=== PATIENT | male | born 2000 | race Caucasian/White ===

== ENCOUNTER 2022-07-06 21:12 | Emergency (ER) | payer OTHER ==
[~2022-07-06] VITALS: Ht 175.3 cm; Wt 79.4 kg
--- NOTE | 2022-07-06 21:23 | NUR ---
3 INCH LAC ON RAC. PT WAS PULLING ARM BACK AND GOT CAUGHT IN GLASS S/P ARGUMENT.
[2022-07-06] MEDS ORDERED: ALPRAZOLAM 0.5 MG TABLET PO ONE (21:30)
[2022-07-06] MEDS ORDERED: ACETAMINOPHEN ES 500 MG TABLET PO ONE (21:30)
[2022-07-06] MEDS ORDERED: LIDOCAINE HCL/PF 1% 30 ML VIAL TP ONE (21:30)
[2022-07-06] MEDS ORDERED: IBUPROFEN 600 MG TABLET PO ONE (21:30)
[2022-07-06] MEDS ORDERED: TDAP [DIPH/PERTUSSIS/TET] 0.5 ML VIAL IM ONE ×2 (21:30→21:33)
[2022-07-06] MEDS ORDERED: ALPRAZOLAM 0.5 MG TABLET ONE (21:33)
[2022-07-06] MEDS ORDERED: ACETAMINOPHEN ES 500 MG TABLET ONE (21:33)
[2022-07-06] MEDS ORDERED: IBUPROFEN 600 MG TABLET ONE (21:33)
[2022-07-06] MEDS ORDERED: LIDOCAINE 1%-EPI 1:100,000 20 ML VIAL ONE (21:34)
--- NOTE | 2022-07-06 21:56 | NUR ---
AT BEDSIDE FOR SUTURING OF WOUND
[2022-07-06] MEDS ORDERED: OLANZAPINE 10 MG VIAL IM ONE ×2 (22:17→22:30)
--- NOTE | 2022-07-06 22:40 | NUR ---
PT ALMOST ELOPE. HE WENT OUTSIDE. ER NURSES FOUND HIM AND BROUGHT HIM BACK TO ER. PLACED ON BED 14. PROVIDED SITTER FOR PT. EXPLAINED THAT HE WILL BE CONTINUOUSLY BEING MONITORED.
--- NOTE | 2022-07-06 22:47 | NUR ---
HARISH UMANZOR ([facility]) [phone]
[2022-07-06 22:56] LABS: BASOPHILS # (AUTO) 0.1 K/uL (0.0-0.2); BASOPHILS % (AUTO) 1.3 % (0.0-2.0); EOSINOPHILS % (AUTO) 1.1 % (0.0-6.0); HEMATOCRIT 45 % (39-51); HEMOGLOBIN 14.9 g/dL (13.5-17.5); LYMPHOCYTES # (AUTO) 1.6 K/uL (0.8-4.8); LYMPHOCYTES % (AUTO) 15.9 % (20.0-44.0); MEAN CORPUSCULAR HGB CONC 33 g/dl (31.0-36.0); MEAN CORPUSCULAR VOLUME 85 fL (80-96); MONOCYTES # (AUTO) 0.2 K/uL (0.1-1.30); MONOCYTES % (AUTO) 1.8 % (2.0-12.0); NEUTROPHILS # (AUTO) 8.1 K/uL (1.8-8.9); NEUTROPHILS % (AUTO) 79.9 % (43.0-81.0); PLATELET COUNT (AUTO) 172 K/uL (150-450); RED BLOOD CELL COUNT(AUTO) 5.28 MIL/uL (4.5-6.0); WHITE BLOOD COUNT (AUTO) 10.1 K/uL (4.3-11.0)
[2022-07-06 23:29] LABS: ACETAMINOPHEN < 10 ug/ml (10-30); ALANINE AMINOTRANSFERASE 18 U/L (12-78); ALBUMIN 4.3 g/dL (3.4-5.0); ALCOHOL, BLOOD < 3 mg/dL (0-0); ALKALINE PHOSPHATASE 82 U/L (46-116); ASPARTATE AMINOTRANSFERASE 21 U/L (15-37); BILIRUBIN,DIRECT 0.1 mg/dL (0.0-0.2); BILIRUBIN,TOTAL 0.5 mg/dL (0.2-1.0); CALCIUM, SERUM 8.6 mg/dL (8.5-10.1); CARBON DIOXIDE 25 mmol/L (21-32); CHLORIDE 104 mmol/L (98-107); CREATININE 1.1 mg/dL (0.6-1.3); GLUCOSE 158 mg/dL (74-106); POTASSIUM 3.3 mmol/L (3.5-5.1); SODIUM SERUM 141 mmol/L (136-145); TOTAL PROTEIN, SERUM 7.2 g/dL (6.4-8.2); UREA NITROGEN, BLOOD 11 mg/dL (7-18)
[2022-07-06 23:42] LABS: BILIRUBIN,URINE NEGATIVE (NEGATIVE); COLOR,URINE YELLOW (YELLOW); LEUKOCYTE ESTERASE ,URINE NEGATIVE (NEGATIVE); NITRITE, URINE NEGATIVE (NEGATIVE); PH,URINE 7.5 (5.0-8.0); PROTEIN,URINE NEGATIVE (NEGATIVE); UGLUCOSE NEGATIVE (NEGATIVE); UROBILINOGEN,URINE 0.2 EU/dL (0.2)
--- NOTE | 2022-07-07 00:42 | NUR ---
COVID SWAB COLLECTED
--- NOTE | 2022-07-07 02:41 | NUR ---
UPDATE GIVEN TO SISTER HARISH.
--- NOTE | 2022-07-07 08:30 | NUR ---
Patient awake, not in distress. Sitter at bedside for constant monitoring. Calm at this time. Will continue to monitor accordingly.
--- NOTE | 2022-07-07 11:52 | NUR ---
awaiting for operations chief for eval.
--- NOTE | 2022-07-07 12:35 | NUR ---
Carleen copeland RN at bedside for eval.
--- NOTE | 2022-07-07 12:50 | NUR ---
[facility] clinician will put patient on a hold.
[2022-07-07] MEDS ORDERED: OLANZAPINE 10 MG VIAL IM ONE ×2 (12:59→13:00)
--- NOTE | 2022-07-07 22:01 | NUR ---
[facility] BED [facility] [address] ACCEPT[address] BY DR NEGRO NUMBER FOR REPORT [phone] (ADRIAN)- IF YOU HAVE ANY OTHER QUESTIONS
--- NOTE | 2022-07-07 22:06 | NUR ---
CALLED [facility] FOR BLS TRANSPORTATION ETA IS 90 MIN TO 2 HOURS
--- NOTE | 2022-07-07 22:12 | NUR ---
REPORT GIVEN TO JACKY BORREGO
--- NOTE | 2022-07-07 23:44 | NUR ---
[facility] FOR PATIENT TRANSPORT TO [facility].
[2022-07-08 01:32] VITALS: BP 125/70
== END 2022-07-08 ==
LOC: ER 21:15
DX: S51.811A Laceration without foreign body of right forearm, initial encounter (principal); W25.XXXA Contact with sharp glass, initial encounter; Y92.039 Unspecified place in apartment as the place of occurrence of the external cause; Z20.822 Contact with and (suspected) exposure to COVID-19; R46.2 Strange and inexplicable behavior; R03.0 Elevated blood-pressure reading, without diagnosis of hypertension
CPT/HCPCS: 12004; 99285; 96372 ×2; 90471; 90715; 73080; 85025; 80048; 80076; 81003; 36415; 80143; 80320; 80307; 87426; J3490 ×4; C9803; G0480